=== PATIENT | male | born 1965 | race Caucasian/White ===

== ENCOUNTER 2018-04-24 01:18 | Emergency (ER) | payer OTHER ==
[~2018-04-24] VITALS: Ht 177.8 cm; Wt 76.7 kg
[~2018-04-24 01:18] MED LIST: ACET-787 PO; GABA-640 PO; NEBI5TAB4 PO
[2018-04-24 01:23] VITALS: BP 115/78
--- NOTE | 2018-04-24 01:26 | NUR ---
53 Y/O M W/C/O LOW CHRONIC BACK PAIN X LAST NIGHT. PT STATES TOOK MORPHINE 30MG AT HOME AT 1999 LAST NIGHT BUT PAIN HASNT IMPROVED. MED HX BACK INJURY, PLACEMENT OF ARTIFICIAL DISK L4-L5 X 2 YRS AGO, HEART STENTS, HTN.
[2018-04-24] MEDS ORDERED: NACL 0.9% 1,000 ML IV ONE ×2 (02:20→03:15)
[2018-04-24] MEDS ORDERED: MORPHINE SULFATE 4 MG/ML SYR IVP ONE (02:20)
[2018-04-24] MEDS ORDERED: ONDANSETRON 4 MG/2 ML VIAL IVP ONE (02:20)
[2018-04-24 02:45] LABS: HEMOGLOBIN 11.9 g/dL (12.0-18.0); MEAN CORPUSCULAR HEMOGLOBIN 19 pg (27-31); MEAN CORPUSCULAR HGB CONC 21 g/dL (33-37); MEAN CORPUSCULAR VOLUME 91.7 fL (80-94); PLATELET COUNT (AUTO) 458 K/uL (140-450); RED BLOOD CELL COUNT(AUTO) 6.22 MIL/uL (4.20-6.10); RED CELL DISTRIBUTION WIDTH 13.8 % (11.6-13.7); WHITE BLOOD COUNT (AUTO) 4.9 K/uL (4.8-10.8)
[2018-04-24 02:56] LABS: ANION GAP 17.8 (8-16); CARBON DIOXIDE 26.4 mmol/L (21-32); CREATININE 1.1 mg/dL (0.7-1.3); HEMATOCRIT 35.7 % (36-52); POTASSIUM 4.2 mmol/L (3.5-5.1)
[2018-04-24 03:02] LABS: ALBUMIN 3.6 g/dL (3.4-5.0); TOTAL BILIRUBIN 0.2 mg/dL (0.0-1.0)
[2018-04-24 03:41] LABS: APPEARANCE,URINE CLEAR (CLEAR); BILIRUBIN,URINE 1+ (NEGATIVE); BLOOD, URINE NEGATIVE (NEGATIVE); COLOR,URINE YELLOW (YELLOW); LEUKOCYTE ESTERASE ,URINE NEGATIVE (NEGATIVE); NITRITE, URINE NEGATIVE (NEGATIVE); PH,URINE 5.5 (5.0-9.0); UGLUCOSE NEGATIVE (NEGATIVE)
[2018-04-24 03:42] VITALS: BP 121/72
--- NOTE | 2018-04-24 03:42 | NUR ---
PT RESTING IN BED, NO S/S OF DISTRESS NOTED. AWATING FOR RESULTS.
[2018-04-24 03:49] LABS: HYALINE CASTS, URINE 0-10 /LPF (None Seen); RBC,URINE 0-5 (RARE) /HPF (0-5); WBC,URINE 0-5 (RARE) /HPF (0-5)
[2018-04-24 03:50] LABS: BARBITURATE, URINE NEG. ng/ml (NEG <=200); BENZODIAZEPINE, URINE NEG. ng/mL (NEG <=200); CANNABINOID, URINE NEG. ng/mL (NEG <=50); COCAINE, URINE NEG. ng/mL (NEG <=300); OPIATE, URINE POS. ng/mL (NEG <=2000); PHENCYCLIDINE SCREEN,URINE NEG. ng/mL (NEG <=25)
[2018-04-24] MEDS ORDERED: metroNIDAZOLE 500 MG/NS PREMIX 100 ML IV ONE (04:56)
[2018-04-24] MEDS ORDERED: D5W IV ONE (04:57)
[2018-04-24] MEDS ORDERED: LEVOFLOXACIN IV ONE (04:57)
[2018-04-24] MEDS ORDERED: KETOROLAC 30 MG/ML VIAL ONE (04:58)
== END 2018-04-24 05:26 | disposition home or self-care (01) ==
LOC: MED 01:18
DX: K85.90 Acute pancreatitis without necrosis or infection, unspecified (principal); M54.5 Low back pain; I10 Essential (primary) hypertension
CPT/HCPCS: 36415; 74176; 80053; 80305; 81001; 83690; 85025; 96374; 96375; 99285; G0482; J1885; J2270; J2405; J3490; J7030; J1956

== ENCOUNTER 2018-06-21 11:55 | Emergency (ER) | payer OTHER ==
[~2018-06-21] VITALS: Ht 177.8 cm; Wt 81.6 kg
--- NOTE | 2018-06-21 12:01 | NUR ---
PT AMBULATED TO ER BED 09
[2018-06-21 12:08] VITALS: BP 186/122
[2018-06-21] MEDS ORDERED: NACL 0.9% 1,000 ML IV ONE (12:10)
[2018-06-21] MEDS ORDERED: MORPHINE SULFATE 4 MG/ML SYR IVP ONE (12:10)
--- NOTE | 2018-06-21 12:29 | NUR ---
lower back pain x 1 day after getting epidural. pt had an injury years ago that resulted in 2 disks compressions. pt taking morphine 30mg am and pm, plus dilaudid 4mg. at bedside. Resp even and unlabored, on ra@100%. med hx: htn, a-fib, 2 artifical disks rx:ms, dilaudid
--- NOTE | 2018-06-21 12:43 | NUR ---
medicated as ordered, will monitor for adverse side effects.
[2018-06-21 12:55] LABS: ANION GAP 16.7 (8-16); CARBON DIOXIDE 21.8 mmol/L (21-32); CREATININE 0.7 mg/dL (0.7-1.3); POTASSIUM 3.5 mmol/L (3.5-5.1)
--- NOTE | 2018-06-21 13:35 | NUR ---
pt taken to ct
--- NOTE | 2018-06-21 13:50 | NUR ---
PT BACK FROM CT
[2018-06-21 16:12] VITALS: BP 140/88
--- NOTE | 2018-06-21 16:13 | NUR ---
Patient discharged with v/s stable. Written and verbal after care instructions given and explained. Patient verbalized understanding. Ambulatory with steady gait. All questions addressed prior to discharge. Advised to follow up with PMD.
== END 2018-06-21 16:13 | disposition home or self-care (01) ==
LOC: MED 11:55
DX: G89.29 Other chronic pain (principal); M54.5 Low back pain; F10.129 Alcohol abuse with intoxication, unspecified; I10 Essential (primary) hypertension; Z79.1 Long term (current) use of non-steroidal anti-inflammatories (NSAID)
CPT/HCPCS: 36415; 72132; 80048; 96374; 99285; G0482; J2270; Q9967

== ENCOUNTER 2021-12-11 11:24 | Emergency (ER) | payer OTHER ==
[~2021-12-11] VITALS: Ht 177.8 cm; Wt 81.6 kg
[~2021-12-11 11:24] MED LIST changes: -ACET-787 PO; +HYDR-5191 PO
[2021-12-11 11:31] VITALS: BP 140/68
[2021-12-11] MEDS ORDERED: MORPHINE SULFATE 4 MG/ML SYR IVP ONE (12:05)
[2021-12-11] MEDS ORDERED: NACL 0.9% 1,000 ML IV ONE (12:05)
--- NOTE | 2021-12-11 12:14 | NUR ---
PT AMBULATED TO RESTROOM WITH STEADY GAIT
--- NOTE | 2021-12-11 12:16 | NUR ---
PT AMBULATED TO ROOM 7 WITH STEADY GAIT
--- NOTE | 2021-12-11 12:34 | NUR ---
18G IV ESTABLISHED IN R AC AND BLOODWORK COLLECTED. BLOODWORK HANDED TO NUCLEAR SPECTROSCOPIST BEDSIDE
--- NOTE | 2021-12-11 12:39 | NUR ---
56Y MALE BIB FROM HOME C/O LEFT HIP PAIN RADIATING LEFT LEG S/P FALL XYESTERDAY. BRUISING NOTED ON PATIENT L THIGH AT THIS TIME. PT DENIES HITTING HIS HEAD AND STATED HE STEPPED WRONG AND FELL ON HIS BACK. NO SIGNS OF TRAUMA NOTED OTHER THAN BRUISING ON L LEG. PT ABLE TO MOVE HIS LEGS, CAP REFILL <2 SECONDS. PT CURRENTLY A&OX4. PT PLACED ON BEDSIDE INFORMATICA AND PUT INTO GOWN PMH: GRAYSON GONZALEZ
--- NOTE | 2021-12-11 12:46 | NUR ---
PT TAKEN TO XRAY VIA [facility]
[2021-12-11 12:53] LABS: HEMATOCRIT 30.1 % (36-52); HEMOGLOBIN 10.3 g/dL (12.0-18.0); MEAN CORPUSCULAR HEMOGLOBIN 33 pg (27-31); MEAN CORPUSCULAR HGB CONC 34 g/dL (33-37); MEAN CORPUSCULAR VOLUME 95.7 fL (80-94); PLATELET COUNT (AUTO) 358 K/uL (140-450); RED BLOOD CELL COUNT(AUTO) 3.14 MIL/uL (4.20-6.10); RED CELL DISTRIBUTION WIDTH 15.4 % (11.6-13.7); WHITE BLOOD COUNT (AUTO) 5.7 K/uL (4.8-10.8)
[2021-12-11 13:08] LABS: ANION GAP 16.5 (8-16); CARBON DIOXIDE 24.3 mmol/L (21-32); CREATININE 0.9 mg/dL (0.6-1.3); POTASSIUM 3.8 mmol/L (3.5-5.1)
[2021-12-11] MEDS ORDERED: IBUP-2213 PO (14:09)
[2021-12-11] MEDS ORDERED: ACET-8386 PO (14:09)
[2021-12-11 14:37] VITALS: BP 119/74
--- NOTE | 2021-12-11 14:37 | NUR ---
Patient discharged with v/s stable. Written and verbal after care instructions given and explained. Patient alert, oriented and verbalized understanding of instructions. Ambulatory with steady gait. All questions addressed prior to discharge. ID band removed. Patient advised to follow up with PMD. Rx of IBUPROFEN AND HYDROCODONE/ACETAMINOPHEN given. Patient educated on indication of medication including possible reaction and side effects. Opportunity to ask questions provided and answered.
[2021-12-11 15:15] LABS: BASOPHILS % (MANUAL) 1 % (0-2); EOSINOPHILS % (MANUAL) 2 % (0-4); LYMPHOCYTES % (MANUAL) 27 % (20-46); MONOCYTES % (MANUAL) 15 % (5-12)
[2021-12-11 15:17] LABS: PLATELET COUNT,MANUAL 360 K/uL (150-450)
== END 2021-12-11 14:37 | disposition home or self-care (01) ==
LOC: MED 11:24
DX: S76.912A Strain of unspecified muscles, fascia and tendons at thigh level, left thigh, initial encounter (principal); F10.10 Alcohol abuse, uncomplicated; I10 Essential (primary) hypertension; Z79.899 Other long term (current) drug therapy; Z79.891 Long term (current) use of opiate analgesic; Z79.1 Long term (current) use of non-steroidal anti-inflammatories (NSAID); W18.39XA Other fall on same level, initial encounter; Y92.89 Other specified places as the place of occurrence of the external cause; Y93.89 Activity, other specified; Y99.8 Other external cause status
CPT/HCPCS: 36415; 73502; 73552; 73562; 73590; 80048; 85025; 96361; 96374; 99284; G0482; J2270; J7030

== ENCOUNTER 2022-04-29 03:12 | Inpatient (IN) | payer OTHER ==
[~2022-04-29] VITALS: Ht 177.8 cm; Wt 80.7 kg
[~2022-04-29 03:12] MED LIST changes: +ACET-8386 PO; +IBUP-2213 PO
[2022-04-29 03:16] VITALS: BP 171/72
--- NOTE | 2022-04-29 03:16 | NUR ---
taken to bed 09
--- NOTE | 2022-04-29 03:23 | NUR ---
57 yo m biba from home with c/c of aloc. per family pt has been acting strange, walking around the house, talking to people who are not there, touching the stove when it is hot, and worsens at night. pt was taken to [facility] for the same complaint and d/c then pt began acting the same. pt is a&ox4 at this time. oriented to date and president. pt states he feels like he doesnt belong. hx:dementia, alzheimer's, htn rx: memantine, ativan, metformin, olanzapine, arecept, nka
[2022-04-29] MEDS ORDERED: NACL 0.9% 1,000 ML IV ONE ×2 (03:40→05:10)
--- NOTE | 2022-04-29 03:47 | NUR ---
LAB AT BEDSIDE
--- NOTE | 2022-04-29 03:53 | NUR ---
COVID SWAB COLLECTED AND SENT WITH MITCHELL FROM LAB. PT DOESNT HAVE TO URINATE AT THIS TIME, PT STARTED ON FLUIDS.
[2022-04-29] MEDS ORDERED: ACETAMINOPHEN EXTRA STRENGTH 500 MG TAB ONE (04:00)
--- NOTE | 2022-04-29 04:00 | NUR ---
received verbal order to give 1g tylenol po for lower back pain.
[2022-04-29] MEDS ORDERED: ACETAMINOPHEN EXTRA STRENGTH 500 MG TAB PO ONE (04:05)
--- NOTE | 2022-04-29 04:16 | NUR ---
pt back from rad
--- NOTE | 2022-04-29 04:29 | NUR ---
ermd at bedside.
[2022-04-29 04:33] LABS: ACETAMINOPHEN 9.6 ug/ml (10-30); ALBUMIN 3.1 g/dL (3.4-5.0); ANION GAP 8.9 (8-16); ASPARTATE AMINOTRANSFERASE 355 U/L (15-37); BASOPHILS % (AUTO) 0.6 % (0.0-2.0); CHLORIDE 96 mmol/L (98-107); EOSINOPHILS % (AUTO) 0.6 % (0.0-4.0); GFR ARICAN-AMERICAN 98 mL/min (>90); GLUCOSE 165 mg/dL (74-106); HEMOGLOBIN 10.6 g/dL (12.0-18.0); LYMPHOCYTES # (AUTO) 2.1 K/uL (2.0-11.5); LYMPHOCYTES % (AUTO) 30.8 % (20.5-51.1); MEAN CORPUSCULAR HEMOGLOBIN 33 pg (27-31); MEAN CORPUSCULAR HGB CONC 34 g/dL (33-37); MEAN CORPUSCULAR VOLUME 97.6 fL (80-94); MONOCYTES # (AUTO) 0.8 K/uL (0.8-1.0); MONOCYTES % (AUTO) 11.1 % (1.7-9.3); NEUTROPHILS # (AUTO) 3.9 K/uL (1.8-7.7); NEUTROPHILS % (AUTO) 56.9 % (42.2-75.2); PLATELET COUNT (AUTO) 138 K/uL (140-450); RED BLOOD CELL COUNT(AUTO) 3.17 MIL/uL (4.20-6.10); SODIUM SERUM 127 mmol/L (136-145); TOTAL BILIRUBIN 1.2 mg/dL (0.0-1.0); UREA NITROGEN, BLOOD 14 mg/dL (7-18); WHITE BLOOD COUNT (AUTO) 6.8 K/uL (4.8-10.8)
[2022-04-29 04:34] LABS: POTASSIUM 2.9 mmol/L (3.5-5.1); SALICYLATE < 2.8 mg/dL (2.8-20.0)
[2022-04-29] MEDS ORDERED: POTASSIUM CHLORIDE 10 MEQ TABER PO ONE (05:05)
[2022-04-29] MEDS ORDERED: DONE5TAB6 PO (05:32)
[2022-04-29] MEDS ORDERED: [UNRECOGNIZED DRUG - CODE] PO (05:32)
[2022-04-29] MEDS ORDERED: METO25TA PO (05:32)
[2022-04-29] MEDS ORDERED: MEMA5TAB PO (05:32)
[2022-04-29] MEDS ORDERED: LORA-476 PO (05:32)
[2022-04-29] MEDS ORDERED: METF-346 PO (05:32)
--- NOTE | 2022-04-29 05:32 | NUR ---
NO WOUNDS PER BODY CHECK
--- NOTE | 2022-04-29 06:31 | NUR ---
PT AMBULATED TO FOR URINE COLLECTION.
--- NOTE | 2022-04-29 06:38 | NUR ---
PT BACK IN BED.
[2022-04-29 06:47] LABS: APPEARANCE,URINE CLEAR (CLEAR); BILIRUBIN,URINE NEGATIVE (NEGATIVE); BLOOD, URINE 2+ (NEGATIVE); COLOR,URINE DARK YELLOW (YELLOW); LEUKOCYTE ESTERASE ,URINE NEGATIVE (NEGATIVE); NITRITE, URINE NEGATIVE (NEGATIVE); UGLUCOSE 3+ (NEGATIVE)
[2022-04-29] MEDS ORDERED: hydrALAZINE 25 MG TAB PO PRN (06:55)
[2022-04-29] MEDS ORDERED: MAG SULF 2000 MG/WATER PREMIX 50 ML IV PRN (06:55)
[2022-04-29] MEDS ORDERED: KCL 20 MEQ/WATER INJ PREMIX 100 ML IV PRN (06:55)
[2022-04-29] MEDS ORDERED: SODIUM PHOSPHATE 15 MMOLE in NACL 0.9% 250 ML IV PRN (06:55)
[2022-04-29] MEDS ORDERED: ACETAMINOPHEN 325 MG TAB PO PRN (07:00)
[2022-04-29] MEDS ORDERED: ONDANSETRON 4 MG/2 ML VIAL IVP PRN (07:00)
[2022-04-29] MEDS ORDERED: LORazepam 1 MG TAB PO PRN ×2 (07:00→15:40)
--- NOTE | 2022-04-29 07:00 | NUR ---
PT GETS UP PERIODICALLY AND PACES AROUND ROOM, STATES HE FEELS CLAUSTROPHOBIC.
[2022-04-29 07:13] LABS: BARBITURATE, URINE NEGATIVE ng/ml (NEG <=200); BENZODIAZEPINE, URINE POSITIVE ng/mL (NEG <=200); COCAINE, URINE NEGATIVE ng/mL (NEG <=300)
[2022-04-29 07:14] LABS: CANNABINOID, URINE NEGATIVE ng/mL (NEG <=50); OPIATE, URINE POSITIVE ng/mL (NEG <=2000); PHENCYCLIDINE SCREEN,URINE NEGATIVE ng/mL (NEG <=25)
[2022-04-29 07:15] LABS: WBC,URINE 0-5 /HPF (0-5)
--- NOTE | 2022-04-29 07:15 | NUR ---
JADE REFUSING TO BE PLACED IN A GOWN AND TOOK MERCURY PURIFIER OFF THROUGHOUT SHIFT. STATED "I FEEL CLAUSTROPHOBIC".
[2022-04-29 07:16] LABS: OTHER CASTS, URINE None Seen /LPF (None Seen)
[2022-04-29] MEDS: HYDROcodone/APAP 5/325 MG 1 TAB TAB PO PRN ×2 (07:56→14:00)
[2022-04-29] MEDS: POTASSIUM CHL 40 MEQ/ D5-1/2NS 1,000 ML IV SCH ×2 (07:57→19:30)
--- NOTE | 2022-04-29 07:58 | NUR ---
Patient will be admitted to care of DR RODRIGUEZ. Admited to TELEMETRY. Will go to [id number]. Belongings list completed. Report to ROSHAN ARANA, REPORT GIVEN BY MATT ARANA.
--- NOTE | 2022-04-29 08:00 | NUR ---
RECEIVED REPORT FROM ER. ADMITTED 57 Y/O WITH ADMITTING DX OF ENCEPHALOPATHY. PT AWAKE, AOX2, CONFUSED AND RESTLESS. WITH C/O ACHING BACK GARCIA 05/15. NO SOB ON ROOM AIR. WITH IV ON RH 22G INFUSING IVF ORDERED
[2022-04-29] MEDS: METOPROLOL 25 MG TAB PO SCH ×2 (08:50→23:00)
[2022-04-29] MEDS: RIFAXIMIN 550 MG TAB PO SCH ×2 (08:50→23:00)
[2022-04-29] MEDS: LACTULOSE 20 GM/30 ML UDC PO SCH ×4 (08:50→23:00)
--- NOTE | 2022-04-29 08:50 | NUR ---
DUE MEDS GIVEN. TOLERATED WELL
--- NOTE | 2022-04-29 10:36 | NUR ---
PATIENT HAS BEEN SCREENED AND CATEGORIZED LOW NUTRITION RISK. PATIENT WILL BE SEEN WITHIN 7 DAYS OF ADMISSION. 05/05/[address]
--- NOTE | 2022-04-29 11:00 | NUR ---
ADRIANA AND EXAMINED BY DR HERNANDEZ
[2022-04-29] MEDS ORDERED: LIDOCAINE 5% 1 EA PATCH TP ONE (11:15)
--- NOTE | 2022-04-29 12:00 | NUR ---
PT CONFUSED AND AGITATED. ATTEMPTING TO LEAVE HOSPITAL. CALLED SECURITY AND ASSISTED PT BACK TO BED
--- NOTE | 2022-04-29 12:30 | NUR ---
PT'S AT BEDSIDE, PT AGITATED IS THREATENING WITH PHYSICAL VIOLENCE. ASSISTED OUT OF THE ROOM. NOTIFIED DR CHUNG, ORDERED TO HOLD NARCOTICS AND ATIVAN FOR NOW DUE TO PT'S CONFUSION, MAY USE RESTRAINTS IF NEEDED. IS AGREEABLE TO PLAN FOR PRN RESTRAINTS
[2022-04-29 12:53] VITALS: BP 140/87
--- NOTE | 2022-04-29 13:56 | NUR ---
PT CALM, CONFUSED. FREQUENT REORIENTATION REQUIRED
[2022-04-29 16:00] VITALS: BP 149/84
--- NOTE | 2022-04-29 16:46 | NUR ---
PT PACING AROUND ROOM, CONFUSED. FREQUENT SAFETY CHECKS DONE
--- NOTE | 2022-04-29 17:21 | NUR ---
PT PULLED OUT IV AGAIN. NOTIFIED DR CHUNG, PT IS OKAY WITHOUT IV FOR NOW
--- NOTE | 2022-04-29 18:50 | NUR ---
pt finished PO contrast for CT ABD
--- NOTE | 2022-04-29 19:58 | NUR ---
PER CT ABD. ORALLY CONTRAST TAKEN THRU P.O - NO S/SX OF ALLERGIC RXN AT THIS TIME NOTED - RADIOLOGIST INFORMED THAT THE PT HAS NO IV ACCESS - AP INFORMED ABOUT IT AND THE AP AGREED W/ IT - IF EVER ANY THING HAPPEN SUCH ALLERGY REACTION - THE MED WILL ADMINISTER THRU IM - RADIOLOGIST VERBALIZES UNDERSTANDING - WILL PREPARE HANDS OFF TICKET TO RIDE . Addendum: 04/29/22 at 2001 by Latoya Jalloh RN THE WORD PER IN THE ABOVE NURSE'S NOTE IS TYPOGRAPHICALLY ERROR , INSTEAD OF FOR - LORIN
[2022-04-29 20:00] VITALS: BP 140/82
--- NOTE | 2022-04-29 22:49 | NUR ---
CT SCAN ABD/ PELVIS - DONE - RESUMED DIET - BUT PT REFUSED TO EAT AND REFUSED MEDS . WILL CONT. TO MONITOR .
[2022-04-29] MEDS: IBUPROFEN 600 MG TAB PO SCH (23:00)
--- NOTE | 2022-04-29 23:24 | NUR ---
NO LIDOCAINE PATCH FOUND .
[2022-04-30] VITALS: BP 142/85
--- NOTE | 2022-04-30 00:33 | NUR ---
SLEEPING , AWAKEABLE , NO S/SX OF ACUTE DISTRESS NOTED AT THIS TIME , WILL CONT. TO MONITOR .
[2022-04-30 04:00] VITALS: BP 128/90
--- NOTE | 2022-04-30 04:00 | NUR ---
REFUSED HOSP. GOHaydeeN , REFUSED YELLOW SOCKS - WILL ENDORSE .
--- NOTE | 2022-04-30 06:00 | NUR ---
RESTING ON BED - NO COMPLAIN MEDS .
[2022-04-30 07:01] LABS: PROTHROMBIN TIME 12.1 secs (10.8-13.4)
[2022-04-30 07:11] LABS: BASOPHILS % (AUTO) 0.7 % (0.0-2.0); EOSINOPHILS % (AUTO) 0.6 % (0.0-4.0); HEMATOCRIT 29.7 % (36-52); HEMOGLOBIN 10.1 g/dL (12.0-18.0); LYMPHOCYTES # (AUTO) 1.5 K/uL (2.0-11.5); LYMPHOCYTES % (AUTO) 29.8 % (20.5-51.1); MEAN CORPUSCULAR HEMOGLOBIN 34 pg (27-31); MEAN CORPUSCULAR HGB CONC 34 g/dL (33-37); MEAN CORPUSCULAR VOLUME 98.3 fL (80-94); MONOCYTES # (AUTO) 0.5 K/uL (0.8-1.0); MONOCYTES % (AUTO) 10.5 % (1.7-9.3); NEUTROPHILS % (AUTO) 58.4 % (42.2-75.2); PLATELET COUNT (AUTO) 139 K/uL (140-450); RED BLOOD CELL COUNT(AUTO) 3.02 MIL/uL (4.20-6.10); RED CELL DISTRIBUTION WIDTH 18.1 % (11.6-13.7); WHITE BLOOD COUNT (AUTO) 5.2 K/uL (4.8-10.8)
[2022-04-30 07:34] LABS: MAGNESIUM 1.1 mg/dL (1.8-2.4); PHOSPHORUS 2.7 mg/dL (2.5-4.9)
--- NOTE | 2022-04-30 07:41 | NUR ---
ENDORSED - PT - STABLE .
[2022-04-30 08:00] VITALS: BP 178/107
--- NOTE | 2022-04-30 08:00 | NUR ---
RECEIVED REPORT FROM AGATA ARANA. PT A/O X1 TO NAME. FREQUENT ORIENTATION TO DATE AND SITUATION. NO IV ACCESS. EXPLAINED TO PT THE PURPOSE AND IMPORTANCE OF HIS MEDICATIONS. PT AGREED TO GETTING IV ACCESS. PT COOPERATIVE AT THIS TIME. NO SOB OR RESPIRATORY DISTRESS. ON RA. STATES LOWER BACK PAIN, ACHING 8/10, NON-RADIATING. SEE EMAR FOR PAIN MEDICATION ADMINISTRATION. NEEDS ALL MET AT THIS TIME. SAFETY MEASURES/FALL PRECAUTION IN PLACE. 1:1 SITTER AT BEDSIDE FOR SAFETY. WILL CONTINUE TO MONITOR CLOSELY.
--- NOTE | 2022-04-30 08:33 | NUR ---
PRN MAGNESIUM SULFATE IVPB GIVEN. FLUIDS RESTARTED. IV ACCESS ON L HAND #22.
[2022-04-30] MEDS: POTASSIUM CHL 40 MEQ/ D5-1/2NS 1,000 ML IV SCH (08:42)
[2022-04-30] MEDS: LACTULOSE 20 GM/30 ML UDC PO SCH ×3 (08:44→17:24)
[2022-04-30] MEDS: METOPROLOL 25 MG TAB PO SCH (08:44)
[2022-04-30] MEDS: RIFAXIMIN 550 MG TAB PO SCH (08:45)
--- NOTE | 2022-04-30 08:45 | NUR ---
JOAQUIN ORTEGA RESTARTED. Rufino JUAREZ #[id number]. Addendum: 04/30/22 at 1355 by Agency Lisa ARANA RN WRONG TIME
[2022-04-30] MEDS: HYDROcodone/APAP 5/325 MG 1 TAB TAB PO PRN ×2 (08:46→17:25)
[2022-04-30] MEDS ORDERED: OLANZapine 5 MG TAB PO SCH (09:00)
[2022-04-30] MEDS ORDERED: MEMANTINE 10 MG TAB PO SCH (09:00)
[2022-04-30] MEDS ORDERED: NEBIVOLOL HCL 5 MG PO SCH (09:00)
[2022-04-30] MEDS ORDERED: DONEPEZIL 10 MG TAB PO SCH (09:00)
[2022-04-30 09:46] VITALS: BP 150/100
[2022-04-30] MEDS ORDERED: POTASSIUM CHLORIDE 40 MEQ, LIDOCAINE MPF 1% 25 MG in NACL 0.9% 250 ML IV ONE (10:35)
--- NOTE | 2022-04-30 11:00 | NUR ---
MD WITH NEW ORDER FOR KRIDER WITH LIDOCAINE. ORDER FOR BMP AND MAGNESIUM AFTER KRIDER AND MAGNESIUM SULFATE IVPB.
[2022-04-30] MEDS ORDERED: LIDOCAINE 5% 1 EA PATCH TP SCH (11:10)
[2022-04-30] MEDS ORDERED: THIAMINE 100 MG TAB PO SCH (11:35)
[2022-04-30] MEDS ORDERED: CYANOCOBALAMIN 100 MCG TAB PO SCH (11:35)
[2022-04-30] MEDS ORDERED: LACT10SO11 PO (11:45)
[2022-04-30] MEDS ORDERED: VITB12 PO (11:45)
[2022-04-30] MEDS ORDERED: THIA-34 PO (11:45)
[2022-04-30] MEDS ORDERED: CYANOCOBALAMIN 100 MCG TAB PO ONE (12:10)
--- NOTE | 2022-04-30 13:00 | NUR ---
PRN 40 MEQ KRIDER WITH LIDOCAINE STARTED.
[2022-04-30] MEDS: IBUPROFEN 600 MG TAB PO SCH ×2 (13:12→13:14)
[2022-04-30 16:00] VITALS: BP 133/89
[2022-04-30 17:58] LABS: ANION GAP 12.8 (8-16); CARBON DIOXIDE 26.5 mmol/L (21-32); CREATININE 0.9 mg/dL (0.6-1.3); POTASSIUM 4.3 mmol/L (3.5-5.1)
--- NOTE | 2022-04-30 19:25 | NUR ---
REPORT GIVEN TO YASMEEN MCFARLAND FOR CONTINUITY OF CARE.
--- NOTE | 2022-04-30 19:26 | NUR ---
ENDORSE BY RAJANI ARANA. RECEIVED PATENT IN BED STABLE AND ALERT. PATIENT INQUIRED ABOUT LAST PAIN MEDICATION AND WAS INFORMED THAT IT IS NOT DUE AND POSSIBILITY OF DISCHARGE TODAY. AWAITING THE LAB RESULT APPROPRIATE FACIAL AFFECT. NO NOTED S/SX OF PAIN/DISCOMFORT. NO NOTED S/SX OF RESPIRATORY DISTRESS. MNURPH1
--- NOTE | 2022-04-30 19:50 | NUR ---
RESULTS ARE BACK AND PATIENT IS APPROPRIATE FOR DISCHARGE. SPOKE WITH PATIENT THAT PATIENT WILL BE READY FOR DISCHARGE SHORTLY. MNURPH1
[2022-04-30 20:14] VITALS: BP 149/102
--- NOTE | 2022-04-30 20:40 | NUR ---
PATIENT [facility]. PATIENT WAS VERBALLY GIVEN EDUCATION ON HIS DIAGNOSIS AND MEDICATION THERAPY. PATIENT WAS GIVEN FINAL DISCHARGE PAPER WORK. PATIENT ALERT AND ORIENTED. TOOK HIM IN THEIR PRIVATE VEHICLE. APPROPRIATE FACIAL AFFECT. NO NOTED S/SX OF PAIN/DISCOMFORT. NO NOTED S/SX OF RESPIRATORY DISTRESS. MNURPH1
[2022-05-01] MEDS ORDERED: CYANOCOBALAMIN 100 MCG TAB PO SCH (09:00)
== END 2022-04-30 20:40 | disposition home or self-care (01) | DRG 812 ==
LOC: MED 03:12 → MTU 05:28
PROVIDERS: ADMIT Internal Medicine; ATTEND Internal Medicine
DX: T40.2X1A Poisoning by other opioids, accidental (unintentional), initial encounter (principal); G92.8 Other toxic encephalopathy; K70.40 Alcoholic hepatic failure without coma; T51.91XA Toxic effect of unspecified alcohol, accidental (unintentional), initial encounter; E11.9 Type 2 diabetes mellitus without complications; I10 Essential (primary) hypertension; G89.4 Chronic pain syndrome; R74.01 Elevation of levels of liver transaminase levels; M54.9 Dorsalgia, unspecified; F32.A Depression, unspecified; F41.9 Anxiety disorder, unspecified; Z20.822 Contact with and (suspected) exposure to COVID-19; Z86.16 Personal history of COVID-19; Y92.89 Other specified places as the place of occurrence of the external cause; E87.1 Hypo-osmolality and hyponatremia; E87.6 Hypokalemia
CPT/HCPCS: 36415; 70450; 71045; 76700; 80048; 80053; 80305; 81001; 82140; 82607; 82746; 83735; 84100; 84484; 85025; 85610; 85730; 87081; 93005; 93970; 96360; 97163-GP; 97530; 99285; G0480; G0482; J0696; J2001; J3475; J3480; J7030; J7060; Q0092

== ENCOUNTER 2022-05-08 07:34 | Emergency (ER) | payer OTHER ==
[~2022-05-08] VITALS: Ht 177.8 cm; Wt 88.5 kg
[~2022-05-08 07:34] MED LIST changes: +DONE5TAB6 PO; -HYDR-5191 PO; +LACT10SO11 PO; +LORA-476 PO; +MEMA5TAB PO; +METF-346 PO; +METO25TA PO; +THIA-34 PO; +VITB12 PO; +[UNRECOGNIZED DRUG - CODE] PO
[2022-05-08 07:46] VITALS: BP 182/83
--- NOTE | 2022-05-08 07:52 | NUR ---
PT AMBULATED TO BED 3 WITH STEADY GAIT
--- NOTE | 2022-05-08 07:54 | NUR ---
DR MURILLO AT BEDSIDE FOR EVAL
--- NOTE | 2022-05-08 07:54 | NUR ---
ER AT BEDSIDE
[2022-05-08] MEDS ORDERED: MORPHINE SULFATE 4 MG/ML SYR IM ONE (07:55)
--- NOTE | 2022-05-08 08:06 | NUR ---
57 Y/O MALE C/O OF BILATERAL LEG PAIN, AND LEFT LOWER BACK PAIN AFTER SLIPPING AND FALLING 4 DAYS AGO. NOTED SWELLING IN THE FEET. STATED THAT HE HAS APPOINTMENT FOR BACK SURGERY NEXT MONTH FOR SLIPPED DISK. A/OX4, GCS-15; AMBULATORY; UNLABORED BREATHING, SPEAKS IN FULL SENTENCES. NKA PMH: HTN, DM
[2022-05-08 09:06] VITALS: BP 182/83
--- NOTE | 2022-05-08 09:08 | NUR ---
Patient discharged with v/s stable. Written and verbal after care instructions given and explained. Patient verbalized understanding. Ambulatory with steady gait. All questions addressed prior to discharge. Advised to follow up with PMD. VSS, A/OX4, UNLABORED BREATHING, AMBULATORY, AND CALM DEMEANOR. DISCHARGED BY DR MURILLO.
== END 2022-05-08 09:08 | disposition home or self-care (01) ==
LOC: MED 07:34
DX: M79.661 Pain in right lower leg (principal); M79.662 Pain in left lower leg; M53.3 Sacrococcygeal disorders, not elsewhere classified; E11.9 Type 2 diabetes mellitus without complications; I10 Essential (primary) hypertension; Z79.899 Other long term (current) drug therapy; Z79.891 Long term (current) use of opiate analgesic
CPT/HCPCS: 96372; 99283; J2270

== ENCOUNTER 2022-05-24 18:44 | Emergency (ER) | payer OTHER ==
[~2022-05-24] VITALS: Ht 177.8 cm; Wt 89.0 kg
[2022-05-24 18:57] VITALS: BP 167/98
--- NOTE | 2022-05-24 20:45 | NUR ---
PATIENT CALL TO PUT ON BED , NO RESPONSE. PATIENT LEFT WITHOUT BEING SEEN BY DR. PICKARD. NO FURTHER CARE PROVIDED FOR PATIENT.
--- NOTE | 2022-05-24 20:50 | NUR ---
CALLED FOR THE SECOND TIME , NO ANSWER
--- NOTE | 2022-05-24 20:55 | NUR ---
CALLED FOR THE THIRD TIME NO RESPONSE
== END 2022-05-24 20:45 | disposition left against medical advice (07) ==
LOC: MED 18:44
DX: M79.89 Other specified soft tissue disorders (principal); Z53.21 Procedure and treatment not carried out due to patient leaving prior to being seen by health care provider